=== PATIENT | female | born 1960 | race Caucasian/White ===

== ENCOUNTER 2021-05-06 13:02 | Observation (INO) ==
[2021-05-06] MEDS ORDERED: diphenhydrAMINE 50 MG/ML VIAL IV STA (13:57)
[2021-05-06] MEDS ORDERED: methylPREDNISolone 125 MG/2 ML VIAL IV STA (13:57)
[2021-05-06 14:07] LABS: Basophils # (auto) 0.05 K/uL (0-0.2); Eosinophils # (auto) 0.03 K/uL (0-0.5); Eosinophils % (auto) 0.6 %; Hematocrit (blood only) 38.5 % (37-47); Hemoglobin 13.1 g/dL (12.0-16.0); Lymphocytes # (auto) 1.32 K/uL (1.2-3.4); Lymphocytes % (auto) 27.4 %; Mean Corpuscular Hemoglobin 32.1 pg (25-34); Mean Corpuscular Volume 94.4 fL (80-100); Mean Platelet Volume 9.9 fL (7.4-10.4); Monocytes # (auto) 0.29 K/uL (0.11-0.59); Neutrophils # (auto) 3.13 K/uL (1.4-6.5); Platelet Count 287 K/uL (130-400); RDW Coefficient of Variation 13.4 % (11.5-14.5); RDW Standard Deviation 46.2 fL (36.4-46.3); Red Blood Count 4.08 M/uL (4.2-5.4); White Blood Count 4.82 K/uL (4.8-10.8)
[2021-05-06 14:19] LABS: INR 0.9 (0.9-1.1); Partial Thromboplastin Ratio 0.9; Partial Thromboplastin Time 23.4 Seconds (21.0-31.0); Prothrombin Time 9.5 Seconds (9.0-12.0)
[2021-05-06 14:22] LABS: Alanine Aminotransferase 27 U/L (12-78); Albumin Globulin Ratio 1.1 (0.9-2); Albumin Level 4.2 gm/dl (3.4-5.0); Alkaline Phosphatase 75 U/L (45-117); Aspartate Aminotransferase 27 U/L (15-37); BUN Creatinine Ratio 14.2 (10-20); Bilirubin,Total 0.5 mg/dl (0.2-1); Blood Urea Nitrogen 12 mg/dl (7-18); Calcium 9.4 mg/dl (8.5-10.1); Carbon Dioxide 26 mmol/L (21-32); Chloride 106 mmol/L (98-107); Creatinine Clr Calc Pharmacy 68.4 ml/min; Est GFR (African American) 83.9 ml/min; Est GFR (Non-African American) 72.4 ml/min; Globulin 3.8 gm/dl (2.5-4.0); Glucose 91 mg/dl (70-99); Magnesium 2.7 mg/dl (1.8-2.4); Potassium 4.7 mmol/L (3.5-5.1); Sodium 138 mmol/L (136-145); Troponin I < 0.015 ng/ml (0-0.045)
--- NOTE | 2021-05-06 14:49 | Emergency Department Note ---
Impression & Plan Confusion, Hypertension, Speech abnormality ED Provider Note NAME: SONIYA STACY AGE: 61 SEX: F : 1960 ARRIVES VIA: Walk-In INFORMANT: [Patient] ED PROVIDER(S): [Scott Ames MD] CHIEF COMPLAINT: Confusion HISTORY OF PRESENT ILLNESS: The patient is a 61-year-old female who presents to the ER with some confusion. She has had symptoms now for around 7 hours. The patient states that she could not remember when she got to work how to do her job. She could not put words together properly. No speech slur. No extremity weakness or deficit. Her symptoms have been ongoing and have not resolved. She is here with her family for an evaluation. The patient has no prior history of stroke. She states that she felt fine last night. The patient did drive to work without any difficulty. Her symptoms began while at work. The patient complains of some slight chest tightness. This is described as a 4/10. She is not short of breath. She has not had cough or fever. There has been no urinary complaints. No abdominal pain. REVIEW OF SYSTEMS: See HPI for pertinent positives and negatives. A total of ten systems were revie wed and were otherwise negative. PMHx/PSHx: See Below SOCIAL HISTORY: See Below. PHYSICAL EXAM: GENERAL: Patient is in no acute distress. HEENT: No acute trauma, normocephalic atraumatic, mucous membranes moist, no nasal congestion, no scleral icterus. NECK: No stridor, no adenopathy, no meningismus, trachea is midline. LUNGS: Clear to auscultation bilaterally, no wheeze, no rhonchi, breath sounds equal. HEART: Without murmurs gallops or rubs, regular rate and rhythm. ABDOMEN: Soft, nontender, bowel sounds positive, no hernias, no peritonitis. EXTREMITIES: No cyanosis or edema, full range of motion of all the joints without pain or difficulty, no signs for acute trauma. NEUROLOGIC: Awake and alert. No speech slur. No speech stuttering. There may be a subtle right facial droop although, the daughter believes this may be normal. There is no extremity drift, no cerebellar dysfunction. SKIN: No rash, no jaundice, no diaphoresis. DIFFERENTIAL DIAGNOSIS: Infection, dehydration, metabolic abnormality, hypo/hyperglycemia, electrolyte disturbance, anemia, hypoxia, cardiac sources, intracerebral event, toxicologic issues, stroke, TIA, as well as other pathologies. EMERGENCY DEPARTMENT COURSE/PROCEDURES: ECG: Indication was possible stroke. The ECG shows a normal sinus rhythm with a rate of 72. There is no ST elevation, no PVCs. There is a potential old septal infarct. The QTc is 431. Continuous Cardiac Monitoring: An order was placed for continuous cardiac monitoring. The monitor shows a rate of 91 with normal sinus rhythm. Critical Care Note: I have personally spent 39 minutes of critical care time in the direct management of this patient. This includes bedside care, inte rpretation of diagnostic studies, and testing, discussion with consultants, patient, and family members, and other required patient management activities. This 39 minutes is in excess of all separately billable procedures. MEDICAL DECISION MAKING: There is no leukocytosis or concerning anemia. There is a normal platelet count. No coagulopathy. No significant electrolyte abnormality or kidney failure. No concerning liver enzyme elevation. ECG shows a sinus rhythm, there is no acute ischemia. Cardiac enzyme testing x1 is not consistent with acute cardiac injury. Urinalysis does not show infection. Covid testing was negative. Chest x-ray did not show pneumonia or CHF. No mediastinal widening. Brain CT showed no acute bleed or mass-effect. CT angio of the head and neck were performed, no narrowing, no clot. On exam, the patient did not have any f ocal neurologic findings. She presented with some confusion and some reported difficulty finding her words when speaking. The patient received IV Solu-Medrol and IV Benadryl in preparation for her CT imaging. She had a dye allergy listed. She was ordered for IV hydralazine however, this was not administered as her blood pressure seemed to decrease spontaneously. The patient needs a neurologic work-up. The cause for her presentation is unclear. A neurology consult, an MRI may be of benefit. 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 The on-call hospitalist was consulted. Of note, the patient was not made a stroke alert. She had no focal neurologic findings, she had presented with symptoms for around 7 hours already. She was out of the TPA window. Past Med/Surg History Medical History Depression History of breast cancer Rheumatoid arthritis Surgical History H/O bilateral mastectomy History of neck surgery 2019 - ACDF Family History Mother Breast cancer Social History Smoking Status: Current every day smoker Tobacco Type: Cigarettes Hx Alcohol Use: Yes Alcohol type: wine Alcohol Intake Frequency: Monthly or Less Feels Safe at Home: Yes Allergies Allergies Allergy/AdvReac Type Severity Reaction Status Date / Time iodine Allergy Unknown Verified 05/06/21 14:27 IVP Contrast Dye AdvReac Mild Hives Uncoded 05/06/21 14:27 Home Meds Home Medications Medication Instructions Recorded Confirmed diclofenac sodium 75 mg 75 mg PO BID 05/06/21 05/06/21 tablet,delayed release hydrocodone 7.5 mg-acetaminophen 1 tab PO Q6H 05/06/21 05/06/21 325 mg tablet venlafaxine 75 mg capsule,extended 75 mg PO DAILY 05/06/21 05/06/21 release 24 hr Results & Data (ED) Vital Signs Vital Signs - 24 hr 05/06/21 13:02 05/06/21 13:18 05/06/21 15:58 Temperature 36.6 C Temperature Source Oral Pulse Rate 91 H Respiratory Rate 18 Blood Pressure 171/105 H Blood Pressure [Left Arm] 128/85 Blood Pressure Mean 127 Blood Pressure Mean [Left Arm] 99 Pulse Oximetry 97 Oxygen Delivery Method Room Air Room Air Sepsis Recent Fever Within 48 Hours No Sepsis New/Unexplained Change in Mental Status No Sepsis Action Taken by Nursing No Action Required Home Medications Current Medication List: was personally reviewed by me Laboratory Data Attestation: I reviewed the patient's lab results. Result diagrams: 05/06/21 13:37 05/06/21 13:37 Lab Results 05/06/21 05/06/21 05/06/21 Range/Units 13:37 13:37 13:37 WBC 4.82 (4.8-10.8) K/uL RBC 4.08 L (4.2-5.4) M/uL Hgb 13.1 (12.0-16.0) g/dL Hct 38.5 (37-47) % MCV 94.4 (80-100) fL MCH 32.1 (25-34) pg MCHC 34.0 (32-36) g/dL RDW Std Deviation 46.2 (36.4-46.3) fL RDW Coeff of Flash 13.4 (11.5-14.5) % Plt Count 287 (130-400) K/uL MPV 9.9 (7.4-10.4) fL Immature Gran % (Auto) 0.0 % Neut % (Auto) 65.0 % Lymph % (Auto) 27.4 % Maries % (Auto) 6.0 % Eos % (Auto) 0.6 % Baso % (Auto) 1.0 % Neut # (Auto) 3.13 (1.4-6.5) K/uL Lymph # (Auto) 1.32 (1.2-3.4) K/uL Maries # (Auto) 0.29 (0.11-0.59) K/uL Eos # (Auto) 0.03 (0-0.5) K/uL Baso # (Auto) 0.05 (0-0.2) K/uL Immature Gran # (Auto) 0.00 (0.00-0.02) K/uL PT 9.5 (9.0-12.0) Seconds INR 0.9 (0.9-1.1) APTT 23.4 (21.0-31.0) Seconds PTT Ratio 0.9 Sodium 138 (136-145) mmol/L Potassium 4.7 (3.5-5.1) mmol/L Chloride 106 (98-107) mmol/L Carbon Dioxide 26 (21-32) mmol/L Anion Gap 6.0 (3-11) BUN 12 (7-18) mg/dl Creatinine 0.86 (0.6-1.2) mg/dl Est Cr Clr Drug Dosing 68.4 ml/min Est GFR ( Amer) 83.9 ml/min Est GFR (Non-Af Amer) 72.4 ml/min BUN/Creatinine Ratio 14.2 (10-20) Glucose 91 (70-99) mg/dl Calcium 9.4 (8.5-10.1) mg/dl Magnesium 2.7 H (1.8-2.4) mg/dl Total Bilirubin 0.5 (0.2-1) mg/dl AST 27 (15-37) U/L ALT 27 (12-78) U/L Alkaline Phosphatase 75 (45-117) U/L Troponin I < 0.015 (0-0.045) ng/ml Total Protein 8.0 (6.4-8.2) gm/dl Albumin 4.2 (3.4-5.0) gm/dl Globulin 3.8 (2.5-4.0) gm/dl Albumin/Globulin Ratio 1.1 (0.9-2) Specimen Hemolysis Urine Color Urine Appearance (Clear) Urine pH (4.5-7.5) Ur Specific Outlook (1.000-1.030) Urine Protein (Negative) Urine Glucose (UA) (Negative) Urine Ketones (Negative) Urine Blood (Negative) Urine Nitrite (Negative) Urine Bilirubin (Negative) Urine Urobilinogen (Negative) Ur Leukocyte Esterase (Negative) COVID-19 Eval Order SARS-CoV-2 (PCR) (Negative) 05/06/21 05/06/21 05/06/21 Range/Units 15:04 15:34 15:34 WBC (4.8-10.8) K/uL RBC (4.2-5.4) M/uL Hgb (12.0-16.0) g/dL Hct (37-47) % MCV (80-100) fL MCH (25-34) pg MCHC (32-36) g/dL RDW Std Deviation (36.4-46.3) fL RDW Coeff of Flash (11.5-14.5) % Plt Count (130-400) K/uL MPV (7.4-10.4) fL Immature Gran % (Auto) % Neut % (Auto) % Lymph % (Auto) % Maries % (Auto) % Eos % (Auto) % Baso % (Auto) % Neut # (Auto) (1.4-6.5) K/uL Lymph # (Auto) (1.2-3.4) K/uL Maries # (Auto) (0.11-0.59) K/uL Eos # (Auto) (0-0.5) K/uL Baso # (Auto) (0-0.2) K/uL Immature Gran # (Auto) (0.00-0.02) K/uL PT (9.0-12.0) Seconds INR (0.9-1.1) APTT (21.0-31.0) Seconds PTT Ratio Sodium (136-145) mmol/L Potassium (3.5-5.1) mmol/L Chloride (98-107) mmol/L Carbon Dioxide (21-32) mmol/L Anion Gap (3-11) BUN (7-18) mg/dl Creatinine (0.6-1.2) mg/dl Est Cr Clr Drug Dosing ml/min Est GFR ( Amer) ml/min Est GFR (Non-Af Amer) ml/min BUN/Creatinine Ratio (10-20) Glucose (70-99) mg/dl Calcium (8.5-10.1) mg/dl Magnesium (1.8-2.4) mg/dl Total Bilirubin (0.2-1) mg/dl AST (15-37) U/L ALT (12-78) U/L Alkaline Phosphatase (45-117) U/L Troponin I (0-0.045) ng/ml Total Protein (6.4-8.2) gm/dl Albumin (3.4-5.0) gm/dl Globulin (2.5-4.0) gm/dl Albumin/Globulin Ratio (0.9-2) Specimen Hemolysis Urine Color Yellow Urine Appearance Clear (Clear) Urine pH 7.5 (4.5-7.5) Ur Specific Outlook 1.005 (1.000-1.030) Urine Protein Negative (Negative) Urine Glucose (UA) Negative (Negative) Urine Ketones Negative (Negative) Urine Blood Negative (Negative) Urine Nitrite Negative (Negative) Urine Bilirubin Negative (Negative) Urine Urobilinogen Negative (Negative) Ur Leukocyte Esterase Negative (Negative) COVID-19 Eval Order Covid19 at [facility] SARS-CoV-2 (PCR) NEGATIVE (Negative) Administered Medications Discontinued Medications Aspirin (Aspirin Chew 324 Mg) 324 mg PO NOW STA Stop: 05/06/21 18:02 Last Admin: 05/06/21 18:05 Dose: 324 mg Documented by: [id number] Aspirin (Aspirin Chew 324 Mg) Confirm Administered Dose 324 mg .ROUTE .[employer]-MED ONE Stop: 05/06/21 18:04 Last Admin: 05/06/21 18:06 Dose: Not Given Documented by: [id number] Diphenhydramine HCl (Diphenhydramine 50 Mg/Ml Vial) 25 mg IV NOW STA Stop: 05/06/21 13:58 Last Admin: 05/06/21 14:25 Dose: 25 mg Documented by: [id number] Hydralazine HCl (Hydralazine Hcl 20 Mg/Ml Vial) 10 mg IV NOW STA Stop: 05/06/21 15:24 Last Admin: 05/06/21 16:02 Dose: Not Given Documented by: [id number] Ioversol (Optiray 320 125ml) 120 ml IV ONCE ONE Stop: 05/06/21 14:56 Last Admin: 05/06/21 14:48 Dose: 120 ml Documented by: [id number] Methylprednisolone (Methylprednisolone 125 Mg/2 Ml Vial) 60 mg IV NOW STA Stop: 05/06/21 13:58 Last Admin: 05/06/21 14:24 Dose: 60 mg Documented by: [id number] Imaging Data Radiologist's Impression: Chest X-Ray 05/06/21 13:57 XR chest 1V portable CLINICAL HISTORY: Stroke Like Symptoms TECHNIQUE: Single frontal radiograph of the chest was obtained. Comparison: Comparison is made to chest one view 08/04/2015 FINDINGS: No lines and tubes are seen. The cardiomediastinal silhouette is normal. The lungs are clear. No evidence of pleural effusion or pneumothorax. IMPRESSION: No acute chest disease. ACT 112: Negative or not required by law. Electronically signed by: Rolan Talbot M.D. 05/06/2021 3:[address] 05/06/21 13:[address], HEAD & NECK CTA HISTORY: Confusion. Dizziness. Stroke Like Symptoms TECHNIQUE: Multiaxial CT of the head were performed without contrast. Multiaxial CT images of the head were performed following the intravenous administration of contrast to evaluate the major cerebral vessels. Multiaxial CT images of the neck were also performed following the intravenous administration of contrast to evaluate the major cervical vessels. Maximum intensity projection images were also obtained. A dose lowering technique was utilized adhering to the principles of ALARA. COMPARISON: Head CT 08/04/2015. FINDINGS: HEAD CT: The paranasal sinuses and mastoid air cells are clear. The calvarium and skull base are intact. Stable prominence of the third ventricle measuring 1.4 cm in thickness. This favors a normal variant. A small arachnoid cyst or pineal gland cyst could also have a similar appearance. There is no mass, hematoma, midline shift, or acute infarct. HEAD CTA: Visualized intracranial internal carotid arteries, distal vertebral arteries, and basilar artery are widely patent. There is no significant stenosis, occlusion, or aneurysm seen within the bilateral ACAs, MCAs, or production intern. The major dural venous sinuses are patent. The aortic arch and proximal great vessels are widely patent. There is no significant stenosis, occlusion, or dissection identified within the bilateral common carotid, internal carotid, or vertebral arteries. Mild emphysema. C4-C6 ACDF. IMPRESSION: 1. No significant stenosis, occlusion, or aneurysm within the [place]. 2. No significant stenosis, occlusion, or dissection identified within the carotid or vertebral arteries. 3. No acute intracranial abnormality. ACT 112: Negative or not required by law. Electronically signed by: Zia Carroll M.D. 05/06/2021 3:11 PM Head CTA 05/06/21 13:[address], HEAD & NECK CTA HISTORY: Confusion. Dizziness. Stroke Like Symptoms TECHNIQUE: Multiaxial CT of the head were performed without contrast. Multiaxial CT images of the head were performed following the intravenous administration of contrast to evaluate the major cerebral vessels. Multiaxial CT images of the neck were also performed following the intravenous administration of contrast to evaluate the major cervical vessels. Maximum intensity projection images were also obtained. A dose lowering technique was utilized adhering to the principles of ALARA. COMPARISON: Head CT 08/04/2015. FINDINGS: HEAD CT: The paranasal sinuses and mastoid air cells are clear. The calvarium and skull base are intact. Stable prominence of the third ventricle measuring 1.4 cm in thickness. This favors a normal variant. A small arachnoid cyst or pineal gland cyst could also have a similar appearance. There is no mass, hematoma, midline shift, or acute infarct. HEAD CTA: Visualized intracranial internal carotid arteries, distal vertebral arteries, and basilar artery are widely patent. There is no significant stenosis, occlusion, or aneurysm seen within the bilateral ACAs, MCAs, or production intern. The major dural venous sinuses are patent. The aortic arch and proximal great vessels are widely patent. There is no significant stenosis, occlusion, or dissection identified within the bilateral common carotid, internal carotid, or vertebral arteries. Mild emphysema. C4-C6 ACDF. IMPRESSION: 1. No significant stenosis, occlusion, or aneurysm within the [place]. 2. No significant stenosis, occlusion, or dissection identified within the carotid or vertebral arteries. 3. No acute intracranial abnormality. ACT 112: Negative or not required by law. Electronically signed by: Zia Carroll M.D. 05/06/2021 3:11 PM Neck CTA 05/06/21 13:[address], HEAD & NECK CTA HISTORY: Confusion. Dizziness. Stroke Like Symptoms TECHNIQUE: Multiaxial CT of the head were performed without contrast. Multiaxial CT images of the head were performed following the intravenous administration of contrast to evaluate the major cerebral vessels. Multiaxial CT images of the neck were also performed following the intravenous administration of contrast to evaluate the major cervical vessels. Maximum intensity projection images were also obtained. A dose lowering technique was utilized adhering to the principles of ALARA. COMPARISON: Head CT 08/04/2015. FINDINGS: HEAD CT: The paranasal sinuses and mastoid air cells are clear. The calvarium and skull base are intact. Stable prominence of the third ventricle measuring 1.4 cm in thickness. This favors a normal variant. A small arachnoid cyst or pineal gland cyst could also have a similar appearance. There is no mass, hematoma, midline shift, or acute infarct. HEAD CTA: Visualized intracranial internal carotid arteries, distal vertebral arteries, and basilar artery are widely patent. There is no significant stenosis, occlusion, or aneurysm seen within the bilateral ACAs, MCAs, or production intern. The major dural venous sinuses are patent. The aortic arch and proximal great vessels are widely patent. There is no significant stenosis, occlusion, or dissection identified within the bilateral common carotid, internal carotid, or vertebral arteries. Mild emphysema. C4-C6 ACDF. IMPRESSION: 1. No significant stenosis, occlusion, or aneurysm within the [place]. 2. No significant stenosis, occlusion, or dissection identified within the carotid or vertebral arteries. 3. No acute intracranial abnormality. ACT 112: Negative or not required by law. Electronically signed by: Zia Carroll M.D. 05/06/2021 3:11 PM Discharge Plan Visit Data Chief Complaint: Confusion Stated Complaint: NEW ONSET OF CONFUSION,CHEST PAIN ED Provider: Scott Ames Discharge Problem: Confusion, Hypertension, Speech abnormality Patient Disposition: Admitted As Inpatient Condition: Fair Forms Stand Alone Forms: [facility] Prescriptions Prescriptions: No Action venlafaxine 75 mg capsule,extended release 24hr 75 mg PO DAILY RF: 0 hydrocodone-acetaminophen 7.5-325 mg tablet 1 tab PO Q6H RF: 0 diclofenac sodium 75 mg tablet,delayed release (DR/EC) 75 mg PO BID RF: 0 Referrals Referrals: Nikhil Khanna MD [Primary Care Provider] -
[2021-05-06] MEDS ORDERED: OPTIRAY 320 125ml IV ONE (14:55)
--- NOTE | 2021-05-06 15:12 | CT Scan Report ---
NONCONTRAST HEAD CT, HEAD & NECK CTA HISTORY: Confusion. Dizziness. Stroke Like Symptoms TECHNIQUE: Multiaxial CT of the head were performed without contrast. Multiaxial CT images of the hea d were performed following the intravenous administration of contrast to evaluate the major cerebral vessels. Multiaxial CT images of the neck were also performed following the intravenous administratio n of contrast to evaluate the major cervical vessels. Maximum intensity projection images were also o btained. A dose lowering technique was utilized adhering to the principles of ALARA. COMPARISON: Head CT 08/04/2015. FINDINGS: HEAD CT: The paranasal sinuses and mastoid air cells are clear. The calvarium and skull base are inta ct. Stable prominence of the third ventricle measuring 1.4 cm in thickness. This favors a normal vari ant. A small arachnoid cyst or pineal gland cyst could also have a similar appearance. There is no ma ss, hematoma, midline shift, or acute infarct. HEAD CTA: Visualized intracranial internal carotid arteries, distal vertebral arteries, and basilar a rtery are widely patent. There is no significant stenosis, occlusion, or aneurysm seen within the [place] ACAs, MCAs, or electrical system specialist. The major dural venous sinuses are patent. The aortic arch and proximal great vessels are widely patent. There is no significant stenosis, occ lusion, or dissection identified within the bilateral common carotid, internal carotid, or vertebral arteries. Mild emphysema. C4-C6 ACDF. IMPRESSION: 1. No significant stenosis, occlusion, or aneurysm within the [place]. 2. No significant stenosis, occlusion, or dissection identified within the carotid or vertebral arter ies. 3. No acute intracranial abnormality. ACT 112: Negative or not required by law. Electronically signed by: Zia Carroll M.D. 05/06/2021 3:11 PM
--- NOTE | 2021-05-06 15:12 | CT Scan Report ---
NONCONTRAST HEAD CT, HEAD & NECK CTA HISTORY: Confusion. Dizziness. Stroke Like Symptoms TECHNIQUE: Multiaxial CT of the head were performed without contrast. Multiaxial CT images of the hea d were performed following the intravenous administration of contrast to evaluate the major cerebral vessels. Multiaxial CT images of the neck were also performed following the intravenous administratio n of contrast to evaluate the major cervical vessels. Maximum intensity projection images were also o btained. A dose lowering technique was utilized adhering to the principles of ALARA. COMPARISON: Head CT 08/04/2015. FINDINGS: HEAD CT: The paranasal sinuses and mastoid air cells are clear. The calvarium and skull base are inta ct. Stable prominence of the third ventricle measuring 1.4 cm in thickness. This favors a normal vari ant. A small arachnoid cyst or pineal gland cyst could also have a similar appearance. There is no ma ss, hematoma, midline shift, or acute infarct. HEAD CTA: Visualized intracranial internal carotid arteries, distal vertebral arteries, and basilar a rtery are widely patent. There is no significant stenosis, occlusion, or aneurysm seen within the pined[place] ACAs, MCAs, or regional truck driver. The major dural venous sinuses are patent. The aortic arch and proximal great vessels are widely patent. There is no significant stenosis, occ lusion, or dissection identified within the bilateral common carotid, internal carotid, or vertebral arteries. Mild emphysema. C4-C6 ACDF. IMPRESSION: 1. No significant stenosis, occlusion, or aneurysm within the [place]. 2. No significant stenosis, occlusion, or dissection identified within the carotid or vertebral arter ies. 3. No acute intracranial abnormality. ACT 112: Negative or not required by law. Electronically signed by: Zia Carroll M.D. 05/06/2021 3:11 PM
--- NOTE | 2021-05-06 15:12 | CT Scan Report ---
NONCONTRAST HEAD CT, HEAD & NECK CTA HISTORY: Confusion. Dizziness. Stroke Like Symptoms TECHNIQUE: Multiaxial CT of the head were performed without contrast. Multiaxial CT images of the hea d were performed following the intravenous administration of contrast to evaluate the major cerebral vessels. Multiaxial CT images of the neck were also performed following the intravenous administratio n of contrast to evaluate the major cervical vessels. Maximum intensity projection images were also o btained. A dose lowering technique was utilized adhering to the principles of ALARA. COMPARISON: Head CT 08/04/2015. FINDINGS: HEAD CT: The paranasal sinuses and mastoid air cells are clear. The calvarium and skull base are inta ct. Stable prominence of the third ventricle measuring 1.4 cm in thickness. This favors a normal vari ant. A small arachnoid cyst or pineal gland cyst could also have a similar appearance. There is no ma ss, hematoma, midline shift, or acute infarct. HEAD CTA: Visualized intracranial internal carotid arteries, distal vertebral arteries, and basilar a rtery are widely patent. There is no significant stenosis, occlusion, or aneurysm seen within the pined[place] ateral ACAs, MCAs, or distribution field technician. The major dural venous sinuses are patent. The aortic arch and proximal great vessels are widely patent. There is no significant stenosis, occ lusion, or dissection identified within the bilateral common carotid, internal carotid, or vertebral arteries. Mild emphysema. C4-C6 ACDF. IMPRESSION: 1. No significant stenosis, occlusion, or aneurysm within the [place]. 2. No significant stenosis, occlusion, or dissection identified within the carotid or vertebral arter ies. 3. No acute intracranial abnormality. ACT 112: Negative or not required by law. Electronically signed by: Zia Carroll M.D. 05/06/2021 3:11 PM
[2021-05-06] MEDS ORDERED: hydrALAZINE HCL 20 MG/ML VIAL IV STA (15:23)
[2021-05-06 15:38] LABS: Appearance Urine Clear (Clear); Bilirubin Urine Negative (Negative); Blood Urine Negative (Negative); Color Urine Yellow; Glucose Urine UA Negative (Negative); Ketones Urine Negative (Negative); Leukocyte Esterase Urine Negative (Negative); Nitrite Urine Negative (Negative); Protein Urine Negative (Negative); Specific Gravity Urine 1.005 (1.000-1.030); Urobilinogen Urine Negative (Negative); pH Urine 7.5 (4.5-7.5)
--- NOTE | 2021-05-06 15:43 | XRay Report ---
XR chest 1V portable CLINICAL HISTORY: Stroke Like Symptoms TECHNIQUE: Single frontal radiograph of the chest was obtained. Comparison: Comparison is made to chest one view 08/04/2015 FINDINGS: No lines and tubes are seen. The cardiomediastinal silhouette is normal. The lungs are clear. No evid ence of pleural effusion or pneumothorax. IMPRESSION: No acute chest disease. ACT 112: Negative or not required by law. Electronically signed by: Rolan Talbot M.D. 05/06/2021 3:42 PM
--- NOTE | 2021-05-06 17:05 | History & Physical Report ---
Date of Service May 06, 2021 Assessment & Plan (1) AMS (altered mental status): (2) Stroke-like symptoms: Plan: -admit to tele -patient presenting with confusion and forgetfulness -in the ED, head/neck CTA unremarkable -had a similar episode one month ago, evaluated at outside hospital - ?? attributed to possible shellfish allergy -ddx: CVA, TGA, complex migraine. No infectious signs noted. -start ASA, statin -brain MRI, echo -neuro checks -neuro consult, input appreciated (3) Rheumatoid arthritis: Plan: -on chronic Vicodin for pain control (4) Depression: Plan: -continue venlafaxine (5) DVT prophylaxis: Plan: -SQ Lovenox History of Present Illness Chief Complaint: Altered Mental Status, Confusion Primary Care Provider: Nikhil Khanna MD 61 year old female with PMH breast cancer s/p BL mastectomy, rheumatoid arthritis, life long tobacco use, depression, and other problems listed below who presents to the ED for evaluation of altered mental status and confusion. Patient reports she woke up feeling in her usual state of health. 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 She has to ask co-workers for help and was repetitive with her questions. Co-workers became concerned and patient was brou ght to the ED for further evaluation. Patient denies associated numbness, tingling, unilateral weakness, slurred speech, and facial droop. I spoke with patient's daughter who reports that the patient had a very similar episode about one month ago. She was seen at a different hospital and symptoms were reportedly attributed to eating shellfish. Patient currently is somewhat restless and has some word finding difficulty. She denies chest pain and shortness of breath. No recent illness, fever, or chills. Denies abdominal pain, nausea, vomiting, and diarrhea. No urinary symptoms. In the ED, head and neck CTA unremarkable. She received pre medication for IV contrast dye allergy. Allergies Allergy/AdvReac Type Severity Reaction Status Date / Time iodine Allergy Unknown Verified 05/06/21 14:27 IVP Contrast Dye AdvReac Mild Hives Uncoded 05/06/21 14:27 Home Medications Medication Instructions Recorded Confirmed Type diclofenac sodium 75 mg 75 mg PO BID 05/06/21 05/06/21 History tablet,delayed release hydrocodone 7.5 mg-acetaminophen 1 tab PO Q6H 05/06/21 05/06/21 History 325 mg tablet venlafaxine 75 mg capsule,extended 75 mg PO DAILY 05/06/21 05/06/21 History release 24 hr aspirin 81 mg tablet,delayed 81 mg PO QAM #30 tab 05/07/21 Rx release atorvastatin 40 mg tablet 40 mg PO HS #30 tab 05/07/21 Rx Past Med/Surg History Medical History Depression History of breast cancer Rheumatoid arthritis Surgical History H/O bilateral mastectomy History of neck surgery 2019 - ACDF Family History Mother Breast cancer Social History Smoking Status: Current every day smoker Tobacco Type: Cigarettes Cigarettes Per Day: 20; Second Hand Exposure: No; Do You Dip or Chew Tobacco: No; Tobacco Cessation Education Requested by Patient: No Hx Alcohol Use: No Hx Substance Use: No Preferred Language: Indonesian Communication Ability: Effective 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 Required: No Beliefs That Will Affect Care: None Current Living Situation: Family Current Living Situation Comment: Patients daughter is living with her at present time How many Children do You have: 1 Other Information That Helps Us Care for You: No Feels Safe at Home: Yes Safety Concerns: Feels Safe At This Time Assistive Devices: None Review of Systems Review of Systems: ROS per HPI, all other systems reviewed and negative Physical Exam Constitutional: WD/WN, vitals as above Eyes: PERRL, conjunctivae normal, anicteric sclerae ENMT: external ear and nose normal, oropharynx normal Respiratory: normal respiratory effort, lungs clear to auscultation Cardiovascular: Rate/Rhythm: regular rate and regular rhythm Vessels: normal peripheral pulses Extremities: no edema Gastrointestinal (Abdomen): normal bowel sounds, soft, nontender, no hepatosplenomegaly Musculoskeletal: no cyanosis or clubbing, extremities motor strength 5/5 Skin: no rashes, warm and dry Neurologic: PERRL, EOMI, accommodation nl, no face palsy, no dysarthria moves all extremities; no focal motor deficits Motor/Sensory: no pronator drift Coordination: normal [id number] test and normal tfij-vn-[id number] test somewhat restless, and intermittent mild word finding Psychiatric: Orientation: alert and oriented x 3 Results & Data Results & Data ([facility]) Vital Signs (Past 12 Hours) Vital Signs Temp Pulse Resp BP BP Pulse Ox 05/06/21 15:58 128/85 05/06/21 13:18 36.6 C 91 H 18 171/105 H 97 Laboratory Results Short CBC 05/06/21 Range/Units 13:37 WBC 4.82 (4.8-10.8) K/uL Hgb 13.1 (12.0-16.0) g/dL Hct 38.5 (37-47) % Plt Count 287 (130-400) K/uL BMP 05/06/21 13:37 Sodium 138 Potassium 4.7 Chloride 106 Carbon Dioxide 26 BUN 12 Creatinine 0.86 Glucose 91 Calcium 9.4 Cardiac Enzymes 05/06/21 Range/Units 13:37 Troponin I < 0.015 (0-0.045) ng/ml Liver Function 05/06/21 Range/Units 13:37 Total Bilirubin 0.5 (0.2-1) mg/dl AST 27 (15-37) U/L ALT 27 (12-78) U/L Alkaline Phosphatase 75 (45-117) U/L Albumin 4.2 (3.4-5.0) gm/dl Urine 05/06/21 Range/Units 15:04 Urine Color Yellow Urine Appearance Clear (Clear) Urine pH 7.5 (4.5-7.5) Ur Specific [place] 1.005 (1.000-1.030) Urine Protein Negative (Negative) Urine Glucose (UA) Negative (Negative) Diagnostic Findings Short CBC 05/06/21 Range/Units 13:37 WBC 4.82 (4.8-10.8) K/uL Hgb 13.1 (12.0-16.0) g/dL Hct 38.5 (37-47) % Plt Count 287 (130-400) K/uL BMP 05/06/21 13:37 Sodium 138 Potassium 4.7 Chloride 106 Carbon Dioxide 26 BUN 12 Creatinine 0.86 Glucose 91 Calcium 9.4 Cardiac Enzymes 05/06/21 Range/Units 13:37 Troponin I < 0.015 (0-0.045) ng/ml Liver Function 05/06/21 Range/Units 13:37 Total Bilirubin 0.5 (0.2-1) mg/dl AST 27 (15-37) U/L ALT 27 (12-78) U/L Alkaline Phosphatase 75 (45-117) U/L Albumin 4.2 (3.4-5.0) gm/dl Urine 05/06/21 Range/Units 15:04 Urine Color Yellow Urine Appearance Clear (Clear) Urine pH 7.5 (4.5-7.5) Ur Specific [place] 1.005 (1.000-1.030) Urine Protein Negative (Negative) Urine Glucose (UA) Negative (Negative) Code Status & VTE Plan VTE Prophylaxis Plan VTE Prophylaxis will be ordered: Yes Supervising Physician Co-Signing Physician Notes I have seen and examined the patient and have discussed the case with the provider above. I agree with the assessment and plan as stated. 61 yo F with transient confusion which has resolved, second episode in the last month. My physical exam is reflective of that above including no gross focal neurologic deficit. Transfer to telemetry floor overnight. DO Adam
[2021-05-06] MEDS ORDERED: ASPIRIN CHEW 324 MG PO STA (18:01)
[2021-05-06] MEDS ORDERED: ASPIRIN CHEW 324 MG ONE (18:03)
--- NOTE | 2021-05-06 21:11 | Magnetic Resonance Report ---
MR brain wo con CLINICAL HISTORY: AMS, stroke like symptoms TECHNIQUE: Multiplanar and multisequence MR images of the brain were obtained without intravenous con trast. Comparison: None available at the time of this dictation. FINDINGS: No abnormal restricted diffusion is identified. Foci of T2 and FLAIR hyperintensity are noted in the paraventricular areas consistent with chronic small vessel ischemic disease. Ex vacuo ventriculomegal y and sulcal enlargement is noted compatible with diffuse encephalomalacia. Hemorrhage No extra axial fluid collections are seen. There are no masses, mass effect, or midline shift. The corpus callosum , pituitary gland, and cerebellar tonsils appear grossly unremarkable. Flow voids of the major intracranial arterial vessels are identified. The imaged portions of the para nasal sinuses, mastoid air cells, and orbits are unremarkable. IMPRESSION: No acute abnormalities. ACT 112: Negative or not required by law. Electronically signed by: Rolan Talbot M.D. 05/06/2021 9:10 PM
[2021-05-06] MEDS ORDERED: PHARMACIST DISCHARGE MED REC CONSULT PRN (21:47)
[2021-05-06] MEDS ORDERED: ENOXAPARIN INJ 40 MG/0.4 ML SYR SQ SCH (21:47)
[2021-05-06] MEDS ORDERED: ACETAMINOPHEN 325 MG TAB PO PRN (21:47)
[2021-05-06] MEDS: ATORVASTATIN 40 MG TAB PO SCH (21:49)
[2021-05-07 06:03] LABS: Basophils # (auto) 0.02 K/uL (0-0.2); Basophils % (auto) 0.3 %; Eosinophils # (auto) 0.01 K/uL (0-0.5); Eosinophils % (auto) 0.2 %; Hematocrit (blood only) 37.5 % (37-47); Hemoglobin 12.5 g/dL (12.0-16.0); Immature Granulocytes # (auto) 0.01 K/uL (0.00-0.02); Immature Granulocytes % (auto) 0.2 %; Lymphocytes # (auto) 1.56 K/uL (1.2-3.4); Mean Corpuscular Hgb Conc 33.3 g/dL (32-36); Mean Corpuscular Volume 95.9 fL (80-100); Mean Platelet Volume 9.8 fL (7.4-10.4); Monocytes # (auto) 0.55 K/uL (0.11-0.59); Monocytes % (auto) 8.8 %; Neutrophils # (auto) 4.08 K/uL (1.4-6.5); Neutrophils % (auto) 65.5 %; Platelet Count 270 K/uL (130-400); RDW Coefficient of Variation 13.5 % (11.5-14.5); RDW Standard Deviation 47.4 fL (36.4-46.3); Red Blood Count 3.91 M/uL (4.2-5.4); White Blood Count 6.23 K/uL (4.8-10.8)
[2021-05-07 06:31] LABS: BUN Creatinine Ratio 15.9 (10-20); Calcium 8.9 mg/dl (8.5-10.1); Creatinine Clr Calc Pharmacy 59.7 ml/min; Est GFR (African American) 74.4 ml/min; Est GFR (Non-African American) 64.2 ml/min
[2021-05-07 08:09] LABS: Estimated Average Glucose 111 mg/dl; Hemoglobin A1C 5.5 % (4.5-5.6)
[2021-05-07] MEDS: ATORVASTATIN 40 MG TAB PO SCH (08:33)
[2021-05-07] MEDS ORDERED: VENLAFAXINE HCL XR 75 MG CAPXR PO SCH (09:00)
[2021-05-07] MEDS ORDERED: ASPIRIN 81 MG ECTAB PO SCH (09:45)
--- NOTE | 2021-05-07 11:29 | Hospitalist Progress Note ---
Date of Service May 07, 2021 Assessment & Plan (1) AMS (altered mental status): (2) Stroke-like symptoms: Plan: -patient presenting with confusion and forgetfulness -in the ED, head/neck CTA unremarkable -had a similar episode one month ago, evaluated at outside hospital - ?? attributed to possible shellfish allergy -brain MRI negative for acute CVA -ddx: TIA, TGA, complex migraine. No infectious signs noted. -start ASA, statin (ASCVD risk 7.3% - at least moderate intensity statin recommneded) -echo - EF 60-65%. grade I diastolic dysfunction, no valvular pathology, no PFO -awaiting neuro eval (3) Rheumatoid arthritis: Plan: -on chronic Vicodin for pain control -previously was on leflunomide however patient self stopped about 2 months ago. patient wishes to establish with a new lean manager. (4) Depression: Plan: -continue venlafaxine (5) DVT prophylaxis: Plan: -SQ Lovenox Dispo - pending, awaiting neuro eval Admission and Anticipated Discharge Date Admission Date: May 06, 2021 Supervising Physician Co-Signing Physician Notes I have seen and examined the patient and have discussed the case with the provider above. I agree with the assessment and plan as stated. Patient is feeling better overall today. Awaiting neurology thoughts and will likely dc to home today. My exam is reflective of that above. Adam, Subjective Patient seen and examined. Resting in bed Reports feeling improved from yesterday. Confusion resolved. No focal deficits. Denies chest pain and shortness of breath. Ambulating to bathroom withour difficulty. Physical Exam Constitutional: WD/WN, vitals as above Respiratory: normal respiratory effort, lungs clear to auscultation Cardiovascular: Rate/Rhythm: regular rate and regular rhythm Vessels: normal peripheral pulses Extremities: no edema Gastrointestinal (Abdomen): Percussion/Palpation: abdomen soft; abdomen nontender Skin: no rashes, warm and dry Neurologic: moves all extremities and awake; no focal motor deficits Speech / Cognition: normal speech Psychiatric: Orientation: alert and oriented x 3 Affect: + flat affect Results & Data Results & Data ([facility]) Vital Signs (Past 12 Hours) Vital Signs Temp Pulse Pulse Resp BP BP Pulse Ox 05/07/21 07:59 37.2 C 74 16 122/64 95 05/07/21 07:24 77 10/19/21 03:49 36.6 C 72 18 128/83 92 05/06/21 23:53 36.8 C 78 20 127/85 95 Laboratory Results Short CBC 05/06/21 05/07/21 Range/Units 13:37 05:32 WBC 4.82 6.23 (4.8-10.8) K/uL Hgb 13.1 12.5 (12.0-16.0) g/dL Hct 38.5 37.5 (37-47) % Plt Count 287 270 (130-400) K/uL BMP 05/06/21 05/07/21 13:37 05:32 Sodium 138 141 Potassium 4.7 4.0 Chloride 106 108 H Carbon Dioxide 26 27 BUN 12 15 Creatinine 0.86 0.95 Glucose 91 102 H Calcium 9.4 8.9 Cardiac Enzymes 05/06/21 Range/Units 13:37 Troponin I < 0.015 (0-0.045) ng/ml Liver Function 05/06/21 Range/Units 13:37 Total Bilirubin 0.5 (0.2-1) mg/dl AST 27 (15-37) U/L ALT 27 (12-78) U/L Alkaline Phosphatase 75 (45-117) U/L Albumin 4.2 (3.4-5.0) gm/dl Urine 05/06/21 Range/Units 15:04 Urine Color Yellow Urine Appearance Clear (Clear) Urine pH 7.5 (4.5-7.5) Ur Specific [place] 1.005 (1.000-1.030) Urine Protein Negative (Negative) Urine Glucose (UA) Negative (Negative) Diagnostic Findings Chest X-Ray 05/06/21 13:57 XR chest 1V portable CLINICAL HISTORY: Stroke Like Symptoms TECHNIQUE: Single frontal radiograph of the chest was obtained. Comparison: Comparison is made to chest one view 08/04/2015 FINDINGS: No lines and tubes are seen. The cardiomediastinal silhouette is normal. The lungs are clear. No evidence of pleural effusion or pneumothorax. IMPRESSION: No acute chest disease. ACT 112: Negative or not required by law. Electronically signed by: Rolan Talbot M.D. 05/06/2021 3:[address] 05/06/21 13:[address], HEAD & NECK CTA HISTORY: Confusion. Dizziness. Stroke Like Symptoms TECHNIQUE: Multiaxial CT of the head were performed without contrast. Multiaxial CT images of the head were performed following the intravenous administration of contrast to evaluate the major cerebral vessels. Multiaxial CT images of the neck were also performed following the intravenous administration of contrast to evaluate the major cervical vessels. Maximum intensity projection images were also obtained. A dose lowering technique was utilized adhering to the principles of ALARA. COMPARISON: Head CT 08/04/2015. FINDINGS: HEAD CT: The paranasal sinuses and mastoid air cells are clear. The calvarium and skull base are intact. Stable prominence of the third ventricle measuring 1.4 cm in thickness. This favors a normal variant. A small arachnoid cyst or pineal gland cyst could also have a similar appearance. There is no mass, hematoma, midline shift, or acute infarct. HEAD CTA: Visualized intracranial internal carotid arteries, distal vertebral arteries, and basilar artery are widely patent. There is no significant stenosis, occlusion, or aneurysm seen within the bilateral ACAs, MCAs, or fuse cup expander. The major dural venous sinuses are patent. The aortic arch and proximal great vessels are widely patent. There is no significant stenosis, occlusion, or dissection identified within the bilateral common carotid, internal carotid, or vertebral arteries. Mild emphysema. C4-C6 ACDF. IMPRESSION: 1. No significant stenosis, occlusion, or aneurysm within the telida of [place]. 2. No significant stenosis, occlusion, or dissection identified within the carotid or vertebral arteries. 3. No acute intracranial abnormality. ACT 112: Negative or not required by law. Electronically signed by: Zia Carroll M.D. 05/06/2021 3:11 PM Head CTA 05/06/21 13:[address], HEAD & NECK CTA HISTORY: Confusion. Dizziness. Stroke Like Symptoms TECHNIQUE: Multiaxial CT of the head were performed without contrast. Multiaxial CT images of the head were performed following the intravenous administration of contrast to evaluate the major cerebral vessels. Multiaxial CT images of the neck were also performed following the intravenous administration of contrast to evaluate the major cervical vessels. Maximum intensity projection images were also obtained. A dose lowering technique was utilized adhering to the principles of ALARA. COMPARISON: Head CT 08/04/2015. FINDINGS: HEAD CT: The paranasal sinuses and mastoid air cells are clear. The calvarium and skull base are intact. Stable prominence of the third ventricle measuring 1.4 cm in thickness. This favors a normal variant. A small arachnoid cyst or pineal gland cyst could also have a similar appearance. There is no mass, hematoma, midline shift, or acute infarct. HEAD CTA: Visualized intracranial internal carotid arteries, distal vertebral arteries, and basilar artery are widely patent. There is no significant stenosis, occlusion, or aneurysm seen within the bilateral ACAs, MCAs, or fuse cup expander. The major dural venous sinuses are patent. The aortic arch and proximal great vessels are widely patent. There is no significant stenosis, occlusion, or dissection identified within the bilateral common carotid, internal carotid, or vertebral arteries. Mild emphysema. C4-C6 ACDF. IMPRESSION: 1. No significant stenosis, occlusion, or aneurysm within the telida of [place]. 2. No significant stenosis, occlusion, or dissection identified within the carotid or vertebral arteries. 3. No acute intracranial abnormality. ACT 112: Negative or not required by law. Electronically signed by: Zia Carroll M.D. 05/06/2021 3:11 PM Neck CTA 05/06/21 13:[address], HEAD & NECK CTA HISTORY: Confusion. Dizziness. Stroke Like Symptoms TECHNIQUE: Multiaxial CT of the head were performed without contrast. Multiaxial CT images of the head were performed following the intravenous administration of contrast to evaluate the major cerebral vessels. Multiaxial CT images of the neck were also performed following the intravenous administration of contrast to evaluate the major cervical vessels. Maximum intensity projection images were also obtained. A dose lowering technique was utilized adhering to the principles of ALARA. COMPARISON: Head CT 08/04/2015. FINDINGS: HEAD CT: The paranasal sinuses and mastoid air cells are clear. The calvarium and skull base are intact. Stable prominence of the third ventricle measuring 1.4 cm in thickness. This favors a normal variant. A small arachnoid cyst or pineal gland cyst could also have a similar appearance. There is no mass, hematoma, midline shift, or acute infarct. HEAD CTA: Visualized intracranial internal carotid arteries, distal vertebral arteries, and basilar artery are widely patent. There is no significant stenosis, occlusion, or aneurysm seen within the bilateral ACAs, MCAs, or fuse cup expander. The major dural venous sinuses are patent. The aortic arch and proximal great vessels are widely patent. There is no significant stenosis, occlusion, or dissection identified within the bilateral common carotid, internal carotid, or vertebral arteries. Mild emphysema. C4-C6 ACDF. IMPRESSION: 1. No significant stenosis, occlusion, or aneurysm within the telida of [place]. 2. No significant stenosis, occlusion, or dissection identified within the carotid or vertebral arteries. 3. No acute intracranial abnormality. ACT 112: Negative or not required by law. Electronically signed by: Zia Carroll M.D. 05/06/2021 3:11 PM Brain MRI 05/06/21 20:17 MR brain wo con CLINICAL HISTORY: AMS, stroke like symptoms TECHNIQUE: Multiplanar and multisequence MR images of the brain were obtained without intravenous contrast. Comparison: None available at the time of this dictation. FINDINGS: No abnormal restricted diffusion is identified. Foci of T2 and FLAIR hyperintensity are noted in the paraventricular areas consistent with chronic small vessel ischemic disease. Ex vacuo ventriculomegaly and sulcal enlargement is noted compatible with diffuse encephalomalacia. Hemorrhage No extra axial fluid collections are seen. There are no masses, mass effect, or midline shift. The corpus callosum, pituitary gland, and cerebellar tonsils appear grossly unremarkable. Flow voids of the major intracranial arterial vessels are identified. The imaged portions of the paranasal sinuses, mastoid air cells, and orbits are unremarka ble. IMPRESSION: No acute abnormalities. ACT 112: Negative or not required by law. Electronically signed by: Rolan Talbot M.D. 05/06/2021 9:10 PM
--- NOTE | 2021-05-07 15:12 | Electrocardiogram Report ---
Test Reason : Blood Pressure : / mmHG Vent. Rate : 072 BPM Atrial Rate : 072 BPM P-R Int : 130 ms QRS Dur : 062 ms QT Int : 394 ms P-R-T Axes : 055 035 063 degrees QTc Int : 431 ms Poor data quality, interpretation may be adversely affected Normal sinus rhythm Septal infarct (cited on or before 05-JAN-2008) Abnormal ECG When compared with ECG of 18-MAR-2018 11:29, No significant change was found Confirmed by Camilo Singh ([id number]) on 05/07/2021 3:12:13 PM Referred By: REFERRED SELF Confirmed By:Camilo Singh
[2021-05-07] MEDS ORDERED: STROKE PATIENT DISCHARGE STA (16:57)
--- NOTE | 2021-05-07 17:14 | Pharmacy Report ---
Pharmacist Stroke Counseling - Date of Service May 07, 2021 - Scope: Pharmacy has been consulted to provide medication discharge counseling for this patient admitted with transient global amnesia, possible TIA as per the Pharmacist Discharge Counseling for Stroke Patients Protocol. - Medications on Discharge: Home Medications Medication Instructions Recorded Confirmed diclofenac sodium 75 mg 75 mg PO BID 05/06/21 05/06/21 tablet,delayed release hydrocodone 7.5 mg-acetaminophen 1 tab PO Q6H 05/06/21 05/06/21 325 mg tablet venlafaxine 75 mg capsule,extended 75 mg PO DAILY 05/06/21 05/06/21 release 24 hr New Rx's Medication Instructions Recorded aspirin 81 mg tablet,delayed 81 mg PO QAM #30 tab 05/07/21 release atorvastatin 40 mg tablet 40 mg PO HS #30 tab 05/07/21 - Action: The above medications, specifically ones for stroke treatment/prophylaxis, have been reviewed in detail with the patient and/or patient international representative(s) prior to discharge. This includes indication, common adverse reactions, drug interactions, and medication administration. Medication counseling has been employed using the teach-back method to ensure understanding. - Outcome: The patient and/or patient international representative(s) have demonstrated understanding of the medications. Additional comments: [] Thank you for allowing pharmacy to be involved in the care of this patient. Please call [phone] with any additional questions
--- NOTE | 2021-05-07 17:58 | Consultation Report ---
NEUROLOGY CONSULTATION NOTE DATE OF CONSULTATION: 05/07/2021 REQUESTING PHYSICIAN: Gem Medina DO. CHIEF COMPLAINT: Confusion. HISTORY OF PRESENT ILLNESS: A 61-year-old woman with a history of breast cancer, status post bilateral mastectomies, rheumatoid arthritis, history of tobacco use, depression, admitted through the Emergency Department yesterday for evaluation of confusion. The patient states she was at work yesterday when she forgot how to do her job. She works at [employer]. She was asking coworkers for help and was receptive with her questions. Coworkers were concerned as she was not performing her job well and brought her to the Emergency Department. She had no weakness, slurred speech, facial droop or numbness. The patient notes a similar episode about 1 month ago. She was evaluated at a different hospital for similar symptoms, thought to be contributed to eating shellfish. The patient is currently back to baseline this afternoon. Speech is clear. Neurology was consulted for assessment. ALLERGIES: IODINE, CONTRAST DYE. HOME MEDICATIONS: Diclofenac, hydrocodone, Effexor. PAST MEDICAL HISTORY: Depression, breast cancer, rheumatoid arthritis. PAST SURGICAL HISTORY: History of bilateral mastectomies, neck surgery, status post ACDF in 2019. FAMILY HISTORY: Mother had breast cancer. SOCIAL HISTORY: Current every day smoker. Drinks alcohol occasionally. REVIEW OF SYSTEMS: All other review of systems was negative except as noted above in the HPI. PHYSICAL EXAMINATION: VITAL SIGNS: Blood pressure 144/83, pulse of 74, respiratory rate 16, temperature 37.2 degrees Celsius, oxygen saturation is 98% on room air. GENERAL: The patient is awake, appears stated age, in no distress, appears normally developed. HEENT: Her eyes are midline. Normal eyelids. Normal conjunctivae. Head is normocephalic and atraumatic. NECK: Supple. LUNGS: Normal respiratory effort. CARDIAC: Pulses are intact. ABDOMEN: Nondistended. SKIN: No skin rash. PSYCHIATRIC: Normal mood. NEUROLOGIC: She is awake, alert, oriented to person, place, and time. Attention is normal. Knowledge is appropriate. Following simple commands. No aphasia, no dysarthria. Pupils are symmetric. Extraocular muscles are intact. Facial sensation is intact. No facial asymmetry. Intact hearing. Palate symmetric. Good shoulder shrug. Tongue is midline. Gait evaluation deferred. No ataxia with obmtzd-we-jlry testing, no tremor. Sensation is intact. Muscle tone is normal. No focal weakness, no ankle clonus. No Gilles sign. DIAGNOSTIC TESTING AND LABORATORY VALUES: WBC 6.23, platelet count 270, hemoglobin 12.5. INR 0.9. Sodium 141, potassium 4.0, chloride 108, carbon dioxide 27, BUN 15, creatinine 0.95. Hemoglobin A1c 5.5. Magnesium 2.7. AST and ALT were normal. Troponin was negative. Triglycerides were elevated at 238. Cholesterol was elevated at 257. LDL cholesterol was 135. TSH was 0.280, which was low. Urinalysis was negative. MRI of the brain showed no acute abnormalities. No evidence of restricted diffusion. Foci of T2 and FLAIR hyperintensities are noted in the periventricular areas consistent with chronic small vessel ischemic disease. No evidence of hemorrhage. No extraaxial fluid collections. No mass or midline shift. Head and neck CTA showed no significant stenosis, occlusion or aneurysm. ASSESSMENT AND PLAN: A 61-year-old woman admitted with transient confusion/amnesia yesterday. The patient is currently back to baseline. No focal neurological deficits. Workup has been reassuring including MRI of the brain and head and neck CTA. No signs of infection. Differential diagnosis certainly includes transient global amnesia as the patient does endorse recent stressors including a recent in the family as well as a visit from her ex- . I do not believe the patient had a transient ischemic attack. The patient is okay to be discharged from neurology standpoint, I would recommend an outpatient routine EEG and follow up with her primary care provider. If symptoms should recur or progress, recommend to follow up with neurology. Job ID: [id number] [facility]
--- NOTE | 2021-05-07 23:27 | Discharge Summary ---
Date of Service May 07, 2021 Admission HPI Per Admitting Provider 61 year old female with PMH breast cancer s/p BL mastectomy, rheumatoid arthritis, life long tobacco use, depression, and other problems listed below who presents to the ED for evaluation of altered mental status and confusion. Patient reports she woke up feeling in her usual state of health. 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 She has to ask co-workers for help and was repetitive with her questions. Co-workers became concerned and patient was brought to the ED for further evaluation. Patient denies associated numbness, tingling, unilateral weakness, slurred speech, and facial droop. I spoke with patient's daughter who reports that the patient had a very similar episode about one month ago. She was seen at a different hospital and symptoms were reportedly attributed to eating shellfish. Patient currently is somewhat restless and has some word finding difficulty. She denies chest pain and shortness of breath. No recent illness, fever, or chills. Denies abdominal pain, nausea, vomiting, and diarrhea. No urinary symptoms. In the ED, head and neck CTA unremarkable. She received pre medication for IV contrast dye allergy. Admission Exam Per Admitting Provider Constitutional: WD/WN, vitals as above Eyes: PERRL, conjunctivae normal, anicteric sclerae ENMT: external ear and nose normal, oropharynx normal Respiratory: normal respiratory effort, lungs clear to auscultation Cardiovascular: Rate/Rhythm: regular rate and regular rhythm Vessels: normal peripheral pulses Extremities: no edema Gastrointestinal (Abdomen): normal bowel sounds, soft, nontender, no hepatosplenomegaly Musculoskeletal: no cyanosis or clubbing, extremities motor strength 5/5 Skin: no rashes, warm and dry Neurologic: PERRL, EOMI, accommodation nl, no face palsy, no dysarthria moves all extremities; no focal motor deficits Motor/Sensory: no pronator drift Coordination: normal [id number]-[id number] test and normal nfmc-xn-vfox test somewhat restless, and intermittent mild word finding Psychiatric: Orientation: alert and oriented x 3 Principal Diagnosis Transient global amnesia Discharge Exam Constitutional: WD/WN, vitals as above Respiratory: normal respiratory effort, lungs clear to auscultation Cardiovascular: Rate/Rhythm: regular rate and regular rhythm Vessels: normal peripheral pulses Extremities: no edema Gastrointestinal (Abdomen): Percussion/Palpation: abdomen soft; abdomen nontender Skin: no rashes, warm and dry Neurologic: moves all extremities and awake; no focal motor deficits Speech / Cognition: normal speech Psychiatric: Orientation: alert and oriented x 3 Affect: + flat affect Discharge Data Allergies Allergy/AdvReac Type Severity Reaction Status Date / Time iodine Allergy Unknown Verified 05/06/21 14:27 IVP Contrast Dye AdvReac Mild Hives Uncoded 05/06/21 14:27 Consultations Neurology, Dr. Upton Procedures Performed none Ordered Studies Head/neck CTA IMPRESSION: 1. No significant stenosis, occlusion, or aneurysm within the [place] of [place]. 2. No significant stenosis, occlusion, or dissection identified within the carotid or vertebral arteries. 3. No acute intracranial abnormality. Brain MRI IMPRESSION: No acute abnormalities. Hospital Course (1) AMS (altered mental status): (2) Stroke-like symptoms: 61 year old female with PMH breast cancer s/p BL mastectomy, rheumatoid arthritis, life long tobacco use, depression, and other problems listed below who presented to the ED for evaluation of altered mental status and confusion. Patient reports she woke up feeling in her usual state of health. 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 She had to ask co-workers for help and was repetitive with her questions. Co-workers became concerned and patient was brought to the ED for further evaluation. In the ED, patient underwent head and neck CTAs that were unremarkable. Patient was admitted to the telemetry unit under observation. She was given a full dose aspirin and started on statin therapy. Brain MRI was negative for acute findings. Echocardiogram showed EF 60 to 65%, grade 1 diastolic dysfunction, no significant valvular pathology. Lipid panel showed triglycerides 238, cholesterol 257, LDL 135, HDL 48. Patient was evaluated by neurology who felt as though the patient had an episode of mild transient global amnesia. Given her ASCVD risk score, patient was continued on aspirin 81mg daily and atorvastatin 40 mg daily. Patient is to follow-up with neurology within the next few weeks and also have outpatient EEG performed Total Time Total Time Spent Total Time Spent (In Minutes): 40 Discharge Plan Discharge Items Patient Disposition: Home - Self-Care Reason For Visit: Confusion Discharge Diagnosis: Transient Global Amnesia (moments of forgetfulness caused by stress) Condition on Discharge: Good Activity: Resume your previous activity Non-emergency contact: Primary Care Provider Call non-emergency contact if: you have any medication questions, your symptoms worsen and your pain is not controlled Follow-up/Referrals: Nikhil Khanna MD [Primary Care Provider] - (Date & Time 05/14/2021 11:00 AM Provider Nikhil Khanna III, MD Department [facility] ) Diet: Heart Healthy Addtl Attending Provider Instructions: You were admitted to the hospital for confusion. You had brain MRI that did not show any signs of a stroke. The neurologist evaluated you and felt that your episode may be due to Transient Global Amnesia (moments of forgetfulness caused by stress). You will need to follow up with neurology. Their office will be reaching out to you about scheduling an appointment. You were started on a baby aspirin (81mg) and cholesterol medicine (atorvastatin 40mg) to help reduce your risk of heart attack and stroke. Pending Studies at Discharge: No Stand-Alone Forms: Medications to Prevent Stroke, My [facility] [employer], Work/School Release, Smoking Cessation Medications and DC Order Prescriptions: New atorvastatin 40 mg tablet 40 mg PO HS Qty: 30 RF: 0 aspirin 81 mg Tablet,Delayed Release (Dr/Ec) 81 mg PO QAM Qty: 30 RF: 0 Continued venlafaxine 75 mg capsule,extended release 24hr 75 mg PO DAILY RF: 0 hydrocodone-acetaminophen 7.5-325 mg tablet 1 tab PO Q6H RF: 0 diclofenac sodium 75 mg tablet,delayed release (DR/EC) 75 mg PO BID RF: 0 Discharge Orders: Discharge Order (Routine); Ordered 05/07/21 Ordered By: Leslie Broussard Admission Data Admit Date/Time: 05/06/21 16:30 Attending Provider: Gem Medina Admit Provider: Gem Medina Primary Care Provider: Nikhil Khanna Other Providers: Gem Medina ; Manas Upton Other Interventions: Discharge Summary Assessment (RN) Last Done: 05/07/21 15:58 Supervising Physician Co-Signing Physician Notes I have seen and examined the patient and have discussed the case with the provider above. I agree with the assessment and plan as stated. Overall she is improved with no further neurologic decline or deficit noted. MRI did not reveal acute intracranial abnormality to explain the episode and per Neurology, TIA is ruled out. This may have been an episode of TGA, however, further workup as outpatient is recommended. As she is back to her baseline neurologically with a negative workup overnight, agree with discharge to home with close primary care follow-up as outpatient. Adam,
== END 2021-05-07 17:45 | disposition home or self-care (01) ==
LOC: ED 13:02 → 2S 13:02